=== PATIENT | female | born 1990 | race Caucasian/White ===

== ENCOUNTER 2022-07-09 14:56 | Inpatient (IN) | payer BC ==
[~2022-07-09] VITALS: Ht 162.6 cm; Wt 118.6 kg
--- NOTE | 2022-07-16 22:00 | NUR ---
G1 at 41 weeks arrives to unit for scheduled induction of labor. Pt oriented to room, call light within reach, bed in low and locked position. Pt denies contractions, LOF, or vaginal bleeding. Reports good movement. Pt denies problems this . US and toco explained and applied. Plan of care reviewed. Admission assessment started. Vitals obtained. SVE closed/thick/high.
[2022-07-16 22:15] VITALS: BP 128/83; PULSE 88; TEMP 97.8
--- NOTE | 2022-07-16 22:30 | NUR ---
18G IV started in right forearm with 1 attempt. Admission labs obtained off IV start. Lactated ringers infusing to gravity. Consents reviewed and signed with patient and spouse. all questions answered.
[2022-07-16 22:45] VITALS: BP 141/96; PULSE 82
--- NOTE | 2022-07-16 23:05 | NUR ---
25 mcg cytotec placed to posterior fornix of vagina at this time. Pt tolerated well. Educated on staying semi flat on left side for the first hour, then can move around in bed for the next hour. Encouraged patient to rest, pillow support provided. Spouse supportive at bedside.
[2022-07-16 23:15] VITALS: BP 128/84; PULSE 68
[2022-07-16 23:37] LABS: BASO % 0.4 % (0.0-2.0); EOS # 0.2 K/mm3 (0.0-0.7); EOS % 1.8 % (0.0-4.0); GRAN # 7.1 K/mm3 (1.4-6.5); GRAN % 63.4 % (42.2-75.2); HEMOGLOBIN 12.7 g/dl (12.5-16.0); LYMPH # 2.9 K/mm3 (1.2-3.4); LYMPH % 25.9 % (20.0-51.0); MEAN CELL VOLUME 91 fl (80.0-100.0); MEAN CORPUSCULAR HEMOGLOBIN 32 pg (27-31); MEAN CORPUSCULAR HGB CONC 35 g/dl (33.0-37.0); MEAN PLATELET VOLUME 8.9 fl (7.4-10.4); MONO # 0.8 K/mm3 (0.1-0.6); MONO % 7.5 % (1.7-9.3); PLATELET COUNT 271 K/mm3 (130-400); RED BLOOD COUNT 4.01 M/mm3 (4.10-5.30); REDCELL DISTRIBUTION WIDTH-CV 12.8 % (11.5-14.5)
[2022-07-16 23:45] VITALS: BP 123/78; PULSE 67
[2022-07-16 23:45] LABS: HEMATOCRIT 36.3 % (37.0-47.0)
[2022-07-17] VITALS (45 sets, daily range): BP systolic 66–129; BP diastolic 35–90; PULSE 57–107; TEMP 97.3–98.5
--- NOTE | 2022-07-17 01:10 | NUR ---
Category 1 tracing. Monitors off, pt up to bathroom. Plan of care reviewed. When asking patient if she was feeling contractions pt states "I feel something is happening".
[2022-07-17] MEDS ORDERED: PRENATAL TABLET PO (01:43)
[2022-07-17] MEDS ORDERED: COLACE 100100 MG/CAP PO (01:44)
--- NOTE | 2022-07-17 03:04 | NUR ---
Category 1 FHR tracing obtained. 25 mcg cytotec placed to posterior fornix of vagina at this time. Pt reports feeling mild cramping but has been able to sleep. Educated on staying in bed for the first 2 hours. Call light within reach. Spouse supportive at bedside.
--- NOTE | 2022-07-17 06:30 | NUR ---
Off monitors to use bathroom. This nurse returned to room around 0645 and patient was still on toilet and stated that she felt nauseous, light headed, and like she was underwater. Pt very pale during this time as well. Pt ambulated back to bed with standby assistance from FOB and this nurse. BP taken once back in bed, 79/50. Lactated ringers restarted and bolus infusing. Snack provided.
--- NOTE | 2022-07-17 07:00 | NUR ---
BP improving with fluids and rest. Monitors back on. Recurrent late decelerations down to 110 bpm noted after contractions. Pt then positioned to right lateral with pillow support. Updated on plan of care. Dr. Rosales notifed, see physician notification.
--- NOTE | 2022-07-17 07:30 | NUR ---
Dr. Rosales at bedside reviewing plan of care with patient and spouse. All questions answered.
--- NOTE | 2022-07-17 11:00 | NUR ---
1037- PATIENT IN RESTROOM AT THIS TIME. NO FHR TRACING UNTIL 1046. 1046- PATIENT ASSISTED INTO BED. RIGHT LATERAL, THIS RN ADJUSTING FHR MONITOR TO TRACE FHR. 1102- PATIENT REQUESTING EPIDURAL AT THIS TIME
--- NOTE | 2022-07-17 11:20 | NUR ---
1120- PATIENT SITTING UP FOR EPIDURAL. THIS RN MONITORING PATIENT AT BEDSIDE, NO FHR TRACING.
--- NOTE | 2022-07-17 12:10 | NUR ---
1152- AT BEDSIDE FOR AROM. SVE 3, AROM AT THIS TIME, CLEAR FLUID NOTED. 1210- PATIENT REPOSITIONED DUE TO RECURRENT LATE VARRIABLES. OXYGEN APPLIED AT THIS TIME.
--- NOTE | 2022-07-17 13:00 | NUR ---
1000- PATIENT IN THE RESTROOM AT THSI TIME, NO FHR TRACING FOR 7 MINUTES 1011- THIS RN AT BEDSIDE READJUSTING EFM AND TOCO, PATIENT IS ON BIRTHING BALL AT THIS TIME.
--- NOTE | 2022-07-17 13:00 | NUR ---
1255- THIS RN AT BEDSIDE REPOSITIONING PATIENT AT THIS TIME. EFM READJUSTED AT THIS TIME. 1300- AT BEDSIDE DISCUSSING RECURRENT LATE DECELERATIONS. C SECTION DISCUSSED WITH PATIENT FOR INTOLERANCE OF LABOR AND THIS RN REMAINS AT BEDSIDE TO PREPARE PATIENT FOR OPERATING ROOM.
--- NOTE | 2022-07-17 21:00 | NUR ---
NURSE INTO PATIENT'S ROOM TO ASSIST WITH GETTING UP FOR THE FIRST TIME POST C/S. 2049 ML EMPTIED FROM PATIENT'S LARSON CATHETER. AT 2114 THIS NURSE AND PATIENT'S ASSISTED PATIENT TO SIDE OF BED. PT SAT UP ON THE SIDE OF THE BED FOR APPROX 3 MINS. PT DENIED DIZZINESS AND NAUSEA AT THAT TIME. RATED PAIN AT AN 8 AT THE INCISION SITE. INCISION DRESSING REMAINS C/D/I. PATIENT ASSISTED TO STANDING POSITION AND AMBULATED WITH THE ASSISTANCE OF ONE TO THE BATHROOM. PATIENT SAT ON TOILET AND THIS NURSE REMOVED PATIENT'S LARSON CATHETER AT THIS TIME. CATHETER BALLOON AND TIP INTACT. NORMAL LOCHIA AMOUNT NOTED ON PAD FROM PATIENT STANDING UP FROM SUPINE POSITION IN BED. SUZAN CARE PERFORMED WITH PATIENT. NEW GOWN, UNDERWEAR, PAD PROVIDED TO PATIENT. NEW PAD PLACED ON PATIENT'S BED. PT AMBULATED BACK TO BED WITH ASSISTANCE OF ONE. PT SAT ON SIDE OF BED FOR APPROX 10 MINUTES AND ATTEMPTED TO FEED , THEN PERMFORED SELF CARE MEASURES. THIS NURSE ASSISTED MOTHER BACK INTO BED. PATIENT EDUCATED ON SIGNS OF ABNORMAL BLEEDING AND INFECTION. PATIENT VERBALIZED UNDERSTANDING. PATIENT REQUESTED INFANT TO NURSERY AT THIS TIME UNTIL NEXT FEEDING. PATIENT RESTING AT THIS TIME.
[2022-07-18 01:20] VITALS: BP 111/68; PULSE 78; TEMP 97.6
[2022-07-18] MEDS ORDERED: PERCOCET 325 MG1 TA2 PO (07:17)
[2022-07-18] MEDS ORDERED: MOTRIN 800800 MG/TAB PO (07:17)
[2022-07-18 07:26] VITALS: BP 112/83; PULSE 81; TEMP 98
--- NOTE | 2022-07-18 09:11 | NUR ---
Initial visit; Parents thanked Operations Scheduler for offering congratulations and a "Special [place]" for the of their son. Operations Scheduler thanked them for choosing [facility] to which they replied that they have had a wonderful experience at our hospital.
[2022-07-18 17:10] VITALS: BP 117/71; PULSE 80; TEMP 98.8
[2022-07-18 19:40] VITALS: BP 120/81; PULSE 89; TEMP 97.6
[2022-07-19 08:01] VITALS: BP 116/82; PULSE 89; TEMP 98.5
== END 2022-07-19 15:43 | disposition home or self-care (01) | DRG 788 ==
LOC: OB 07-14 12:37 → LDR 07-16 21:47 → OB 07-17 13:00
PROVIDERS: ADMIT Obstetrics & Gynecology
PROC: 3E0P7VZ Introduction of Hormone into Female Reproductive, Via Natural or Artificial Opening (ICD-10-PCS; 2022-07-16)
PROC: 3E033VJ Introduction of Other Hormone into Peripheral Vein, Percutaneous Approach (ICD-10-PCS; 2022-07-16)
PROC: 10D00Z1 Extraction of Products of Conception, Low, Open Approach (ICD-10-PCS; principal; 2022-07-17)
PROC: 10907ZC Drainage of Amniotic Fluid, Therapeutic from Products of Conception, Via Natural or Artificial Opening (ICD-10-PCS; 2022-07-17)
DX: O48.0 Post-term pregnancy (principal); Z37.0 Single live birth; O76 Abnormality in fetal heart rate and rhythm complicating labor and delivery; O26.53 Maternal hypotension syndrome, third trimester; O35.8XX0 Maternal care for other (suspected) fetal abnormality and damage, not applicable or unspecified; O99.214 Obesity complicating childbirth; O69.81X0 Labor and delivery complicated by cord around neck, without compression, not applicable or unspecified; Z3A.41 41 weeks gestation of pregnancy; Z86.16 Personal history of COVID-19
CPT/HCPCS: J1100; J1885; J2405; J2590; J7120

== ENCOUNTER 2022-07-21 18:54 | Emergency (ER) | payer BC ==
[~2022-07-21] VITALS: Ht 162.6 cm; Wt 116.9 kg
[~2022-07-21 18:54] MED LIST: COLACE 100100 MG/CAP PO; MOTRIN 800800 MG/TAB PO; PERCOCET 325 MG1 TA2 PO; PRENATAL TABLET PO
[2022-07-21 19:03] VITALS: TEMP 98.1
[2022-07-21 19:36] LABS: BASO % 0.3 % (0.0-2.0); EOS # 0.5 K/mm3 (0.0-0.7); EOS % 5.5 % (0.0-4.0); GRAN # 5.6 K/mm3 (1.4-6.5); GRAN % 60.9 % (42.2-75.2); HEMOGLOBIN 11.6 g/dl (12.5-16.0); LYMPH # 2.4 K/mm3 (1.2-3.4); LYMPH % 26.3 % (20.0-51.0); MEAN CELL VOLUME 91 fl (80.0-100.0); MEAN CORPUSCULAR HEMOGLOBIN 32 pg (27-31); MEAN CORPUSCULAR HGB CONC 35 g/dl (33.0-37.0); MEAN PLATELET VOLUME 8.3 fl (7.4-10.4); MONO # 0.6 K/mm3 (0.1-0.6); MONO % 6.3 % (1.7-9.3); PLATELET COUNT 311 K/mm3 (130-400); RED BLOOD COUNT 3.67 M/mm3 (4.10-5.30); REDCELL DISTRIBUTION WIDTH-CV 12.7 % (11.5-14.5)
[2022-07-21 19:37] LABS: HEMATOCRIT 33.4 % (37.0-47.0)
[2022-07-21 19:56] LABS: ALBUMIN 2.9 gm/dL (3.5-5.0); BILIRUBIN,TOTAL 0.3 mg/dL (0.2-1.2); CALCIUM 9.3 mg/dL (8.4-10.2); CREATININE, serum 0.78 mg/dL (0.57-1.11); TOTAL PROTEIN 6.4 gm/dL (6.2-8.1)
[2022-07-21 21:49] VITALS: BP 142/97; PULSE 64
== END 2022-07-21 21:57 | disposition home or self-care (01) ==
LOC: COL.ER 18:54
PROVIDERS: Physician Assistant
DX: O90.89 Other complications of the puerperium, not elsewhere classified (principal); R07.89 Other chest pain
CPT/HCPCS: Q9967

== ENCOUNTER → 2022-08-21 | Outpatient (CLI) | payer BC ==
--- NOTE | 2022-08-21 14:09 | NUR ---
Pt, Ada Fragosolisa, presents to walk-in clinic with 1 month old baby boy, Joey Khalil, for a evaluation. Joey was born by c/section on [birth year] and weighed 7# 14.6oz (3590 gms). He was re-admitted at 5 days of age for weight loss (13%). He was bottle fed and weight was WNL. Pt has been following a 3-step feeding plan with breast, bottle and pumping. She reports he is generally breastfeed 5 of 8 feedings prior to bottle feeding, that he gets about 3oz per feeding by bottle, and 8-12oz of this is EBM and and the remainder is formula. Pt pumps ~1oz p BF and ~2oz if he does not BF prior to pumping. Today Joey weighs 9#13oz (4452 gms). After bilaterally Joey had a weight gain of 1.3oz (36 gms). He is bottle fed ~2oz formula after BF. Pt has been using herbal supplements, increased fluid and pumping to improve milk supply, and production estimate is about 50% of his intake needs. Pt's recollection of pumping volumes is more of a guestimate. POC: Continue current feeding plan, continue working on milk production with adding power pumping into her pump routine. F/U: As desired with BF clinic, as scheduled with physicians. Questions invited and answered.
== END ==
LOC: LAC 13:36
DX: Z39.1 Encounter for care and examination of lactating mother (principal); Z71.89 Other specified counseling

== ENCOUNTER → 2022-09-02 | Outpatient (CLI) | payer BC ==
--- NOTE | 2022-09-02 15:14 | NUR ---
Pt, Ada Khalil, presents to walk-in clinic with 6 week old baby boy, Joey Khalil, for a evaluation and evaluation of milk volume. Joey was born on [birth year] and weighed 7# 14.6oz (3589 gms). Joey had a weight loss of 13% at 5 days of age and pt has been , pumping, and bottle feeding. They were seen by this LC on 08/21/22 and he weighed 9# 13oz (4452 gms). He was observed and bottle feeding and was noted he did not remain latched well on either. Joey was evaluated at [facility] for oral tethers which were released on 08/26/22. Pt states Joey has a much stronger and continuous latch with feedings since the release. Pt continues to breastfeed Joey 5-6 times in the day, he is supplemented 1-1.5oz EBM as needed after these feedings. At night, she pumps and bottle feeds x3 (4oz formula feeds). She pumps 1-2.5oz at these noc feeds. Today Joey weighs 10# 7.4oz (4746 gms). After today Joey had a gain of 1.5oz (42 gms). Pt will supplement him at home. Pt denies h/o fertility or endocrine system problems, but she does have wide spaced, conical shaped breasts that may indicate underdeveloped mamary tissue or a symptom of PCOS. Pt states she may work with her healthcare provider to discuss this further. Meanwhile, pt will continue , supplementing and bottle feeding to ensure Joey gets enough to gain weight well. She is also using herbal supplements. POC: Continue BF, supplement, and pump to ensure adequate intake for Joey and improve milk supply. F/U: Walk-in BF clinic as desired, as scheduled with physicians. Questions invited and answered.
== END ==
LOC: LAC 13:50
DX: Z39.1 Encounter for care and examination of lactating mother (principal)